=== PATIENT | female | born 1945 | race Caucasian/White ===

== ENCOUNTER → 2016-07-26 17:49 | Outpatient (CLI) | payer MEDICARE | END | disposition home or self-care (01) | LOC: D.LABREF 17:49 | DX: D64.9 Anemia, unspecified (principal) ==

== ENCOUNTER 2016-10-27 05:09 | Day surgery (SDC) | payer MEDICARE ==
[2016-10-26 10:54] LABS: HEMATOCRIT 34.8 % (36.0-48.0); HEMOGLOBIN 11.2 g/dL (12-16); MCH 30.6 pg (26.0-34.0); MCHC 32.2 g/dL (31.0-37.0); MCV 95.1 fL (80.0-100.0); MEAN PLATELET VOLUME 10.4 fL (7.4-10.4); RBC 3.66 10x6/uL (4.00-5.40); RDW 12.8 % (11.5-14.5); WBC 10.3 10x3/uL (4.8-10.8)
[2016-10-26 11:07] LABS: ANION GAP 12.7 mmol/L (8-16); CALCIUM 9.3 mg/dL (8.5-10.1); CARBON DIOXIDE 26.7 mmol/L (21.0-32.0); CREATININE - SERUM 0.9 mg/dL (0.6-1.3); POTASSIUM - SERUM 4.4 mmol/L (3.5-5.1)
[~2016-10-27] VITALS: Ht 157.5 cm; Wt 59.4 kg
--- NOTE | ~2016-10-27 | OP ---
PATIENT NAME: ЕЛЕНА MCNULTY MEDICAL RECORD: [id number] :49 LOCATION:D.OPS ADMISSION DATE: SURGEON: ROBE JAQUEZ DATE OF OPERATION: 10/27/2016 SURGEON: Robe Jaquez DPM PREOPERATIVE DIAGNOSES: 1. Tailor's bunion, right foot. 2. Hammertoe, second toe, right foot. 3. Hammertoe, third toe, right foot. 4. Hammertoe, fourth toe, right foot. 5. Hammertoe, fifth toe, right foot. POSTOPERATIVE DIAGNOSES: 1. Tailor's bunion, right foot. 2. Hammertoe, second toe, right foot. 3. Hammertoe, third toe, right foot. 4. Hammertoe, fourth toe, right foot. 5. Hammertoe, fifth toe, right foot. PROCEDURES: 1. Tailor's bunionectomy (silver type), right foot. 2. Arthrodesis, second toe, right foot. 3. Arthrodesis, third toe, right foot 4. Arthrodesis fourth toe, right foot. 5. Arthroplasty, fifth toe, right foot. ANESTHESIA: General. HEMOSTASIS: Pneumatic ankle tourniquet inflated to 250 mmHg. ESTIMATED BLOOD LOSS: Minimal. MATERIALS: A 3-0 Vicryl, 4-0 nylon, three 0.045 inch K-wires. INJECTABLES: A 20 cc of 0.25% Marcaine plain. INDICATIONS FOR PROCEDURE: The patient has longstanding history of the above-mentioned foot deformity. She has tried wider shoes to no avail. She is here today for surgical correction of the above deformities. We have discussed risks and benefits and complications were reviewed. Her questions were answered. She was appropriately consented for the above-mentioned procedures. The patient was brought in the operating room and placed in the operating table in supine position. A timeout was called with Dr. Jaquez, who identified the patient, the surgical site, and the surgeries to be performed. Once appropriate anesthesia was obtained, the foot was prepped and draped in the usual aseptic manner. The pneumatic ankle tourniquet was inflated to 250 mmHg on the well-padded right ankle. PROCEDURE NUMBER 1: Tailor's bunionectomy: Attention was directed to the dorsal lateral aspect of the fifth metatarsal head where a 4-cm linear incision OPERATIVE REPORT [id number] ЕЛЕНА MCNULTY was made. This incision was carried deep to soft tissue with care being taken to retract any vital neurovascular structures. All bleeders were cauterized along the way. The periosteum was then reflected from the head of the fifth metatarsal, thus exposing the hypertrophied lateral eminence. Utilizing a sagittal saw, all hypertrophied bone was resected. A bone rasp was then utilized to smooth any sharp bone edges. The surgical site was then irrigated with copious amounts of normal sterile saline via bulb syringe. The surgical site was then investigated for any remaining bony prominences and none were noted. The periosteum was then reapproximated and coapted utilizing 3-0 Vicryl. The subQ was then reapproximated and coapted utilizing 3-0 Vicryl and the skin was reapproximated and coapted using 4-0 nylon. PROCEDURE NUMBER 2: Arthrodesis second toe, right foot: Attention was directed to the dorsal aspect of the second toe of the right foot where a 3 cm linear incision was made. This incision was carried deep through soft tissue with care being taken to retract all vital neurovascular structures. All bleeders were cauterized along the way. The extensor tendon was then reflected at the level of the proximal interphalangeal joint. All soft tissue attachments were then freed from the head of the proximal phalanx, thus exposing the head of that bone. Utilizing a bone cutting forceps, the head of the proximal phalanx was resected. Utilizing a curette and rongeur, all cartilage was removed from the base of the middle phalanx. Dissection was then carried dorsally along the shaft of the proximal phalanx to the level of the metatarsophalangeal joint. Utilizing 15 blade, all tight contracted structures were released from the medial aspect of the joint. The surgical site was then irrigated with copious amounts of normal sterile saline via bulb syringe. Next, one 0.045 inch K-wire was driven through the middle phalanx distally exiting the toe. The K-wire was then retrograded into the proximal phalanx and into the head of the second metatarsal. The K-wire was then bent and clipped. The surgical site was then irrigated with copious amounts of normal sterile saline via bulb syringe. The extensor tendon was then reapproximated and coapted utilizing 3-0 Vicryl. The subQ was then reapproximated and coapted utilizing 3-0 Vicryl. The skin was then reapproximated and coapted using 4-0 nylon. PROCEDURE NUMBER 3: Arthrodesis, third toe, right foot. The exact same procedure that was performed in procedure number 2 was performed on toe number 3 without exception. PROCEDURE NUMBER 4: Arthrodesis fourth toe, right foot. The exact same procedure that was performed in procedures numbers 2 and 3 was performed on the fourth toe of the right foot without exception. PROCEDURE NUMBER 5: Arthroplasty, fifth toe, right foot: Attention was directed to the fifth toe of the right foot, where the incision utilized for procedure number 1 was extended on to the fifth toe of the right foot. This incision was carried deep to soft tissue with care being taken to retract all vital neurovascular structures. All bleeders were cauterized along the way. The extensor tendon was then reflected from the head of the proximal phalanx, thus exposing the hypertrophied eminence of this bone. Utilizing a bone cutting forceps, the head of the proximal phalanx was resected. Any sharp remaining bony edges were then smoothed with a rasp. The surgical site was then irrigated OPERATIVE REPORT [id number] ЕЛЕНА MCNULTY with copious amounts of normal sterile saline via bulb syringe. The extensor tendon was then reapproximated and coapted utilizing 3-0 Vicryl. The subQ was then reapproximated and coapted using 3-0 Vicryl. The skin was reapproximated and coapted using 4-0 nylon. A dressing consisting of Xeroform, 4 x 4's, Kerlix, and Johnnie bandage was applied to the right foot. The pneumatic ankle tourniquet was deflated and capillary refill time is noted to be immediate to all digits of the right foot. The patient tolerated the procedure and anesthesia well. She left the operating room with vital signs stable and capillary refill time intact. The patient was discharged home with instructions to ice and elevate the right foot. She was dispensed a boot to help offload the right foot. She has my cell phone number for any after hour difficulties. We will follow up with her next week. There were no complications with this procedure. TRANSINT:[id number] Voice Confirmation ID: [id number] DOCUMENT ID: [id number] ROBE JAQUEZ CC: [id number] DICTATION DATE: 10/27/16 1647 MARBLE MACHINE TENDER: 10/27/16[facility] 10/27/16 [facility] [address] [place] [address]
[~2016-10-27 05:09] MED LIST: LEVOTHYROXINE125 MCG PO; TENORMIN25 MG PO; ZESTORETIC 20-1 EACH PO
[2016-10-27 11:19] VITALS: BP 145/65; Ht 157.5 cm; Wt 59.4 kg
--- NOTE | 2016-10-27 14:30 | NUR ---
IV INFILTRATED AFTER GIVING IV DILAUDID FOR PAIN. PT REQUESTED IV NOT BE RESTARTED AND TO TAKE ORAL PAIN MEDICATION. REMOVED IV, PLACED WARM COMPRESS OVER AREA, AND TRANSFERRED TO OUTPATIENT ROOM.
--- NOTE | 2016-10-27 17:10 | NUR ---
1445- RECEIVED REPORT FROM Roosevelt CHRISTINE RN. TO SITTING WITH HOB ELEVATED. RIGHT FOOT ELEVATED WITH BOOT IN PLACE. IV INFILTRATED AND WAS REMOVED, WARM COMPRESS IN PLACE. 1515- FULL LIQUIDS TOLERATED, PAIN MED GIVEN FOR PAIN OF 6/10 TO RIGHT FOOT 1630- PT WAS UP OOB TO BR, VOIDED WITHOUT DIFFICULTY. REPORTS STILL FEELING DROWSY WILL CONTINUE TO MONITOR. 1700- DISCHARGE INSTRUCTIONS COMPLETED, PT VERBALIZED UNDERSTANDING. PAPERWORK SIGNED 1705- PT DISCHARGED VIA WHEELCHAIR WITH .
== END 2016-10-27 17:05 | disposition home or self-care (01) ==
LOC: D.OPS 05:09 → D.PAN 11:30 → D.OPS 11:30
PROVIDERS: Anesthesiology
DX: M21.621 Bunionette of right foot (principal); M20.41 Other hammer toe(s) (acquired), right foot

== ENCOUNTER → 2017-07-26 12:50 | Outpatient (CLI) | payer MEDICARE, OTHER ==
[2016-10-27 11:19] VITALS: BMI 24.0
--- NOTE | ~2017-07-26 | EC ---
PATIENT:ЕЛЕНА MCNULTY DATE OF SERVICE: 07/26/17 SEX: F MEDICAL RECORD: [id number] DATE OF : 49 LOCATION:D[facility] AGE OF PATIENT: 71 ADMISSION DATE: 07/26/17 REFERRING PHYSICIAN: INTERPRETING PHYSICIAN: ANNI ESTRADA MD ECHOCARDIOGRAM REPORT ECHO CHARGES 4 ECHO COMPLETE CLINICAL DIAGNOSIS: MURMUR ECHOCARDIOGRAPHIC MEASUREMENTS (adult normal given) AC root (d.<3.7cm) 3.0 cm LV Septum d (<1.2 cm> 1.5 cm Valve Excursion 1.5 cm LV Septum (systole) 2.1 cm Left Atria (s.<4.0cm> 4.1 cm LVPW d(<1.2cm) 1.5 cm RV (d.<2.3cm) 1.9 cm LVPW (sytole) 2.0 cm LV diastole(<5.6CM) 4.8 cm MV E-F(>70mm/sec) cm LV systole 2.7 cm LVOT Diameter 1.5 cm MV exc.(>10mm) cm Est.ejection fraction (50-75%) % Pericardial Effusion N DOPPLER: LVIT cm/sec A 66.0 cm/sec E 87.0 cm/sec LA cm/sec RVSP 35.2 mmHg LVOT 100 cm/sec AOP1/2T m/s Asc. Ao 231 cm/sec RVOT 69.0 cm/sec RA cm/sec PA 84.0 cm/sec AV Gradient Peak 21.3 mmHg AV Mean 9.8 mmHg AV Area 0.8 cm MV Gradient Peak 5.8 mmHg MV Mean 2.1 mmHg MV Area cm COMMENTS: Butt Welder: Zahida LINGOE Professor Of Voice: 1 Dr. Estrada TAPE# PACS DATE OF SERVICE: 07/26/2017 ECHOCARDIOGRAM DATE OF SERVICE: 07/26/2017 FINDINGS: 1. Left ventricle chamber size is within normal limits. Left ventricular systolic function is normal. Overall ejection fraction estimated at 60%. 2. The left atrium is mildly dilated at 4.1 cm. Right atrium and right ECHOCARDIOGRAM REPORT [id number] ЕЛЕНА MCNULTY ventricular chamber sizes are as well mildly dilated. 3. Valvular structures: Aortic valve demonstrates [id number] calcific aortic stenosis. There is a gradient of 21 mm across the valve. The valve area calculates to 0.8 cm-squared. The remaining valvular structures have normal structure and motion. 4. Doppler interrogation elsewise reveals [id number] mitral regurgitation, moderate tricuspid regurgitation, no other valvular insufficiency or stenosis. Pulmonary systolic pressure is estimated at 35 mmHg. 5. No evidence of pericardial effusion or left ventricular thrombus. TRANSINT:[id number] Voice Confirmation ID: [id number] DOCUMENT ID: [id number] ANNI ESTRADA MD at 1323 CC: [id number] DICTATION DATE: 07/27/17 0832 FIRE ADJUSTER: 07/27/17 1236 DEP CLI 07/26/17 [id number] [place] [address]
== END | disposition home or self-care (01) ==
LOC: D.ECHO 07-21 13:00
DX: R01.2 Other cardiac sounds (principal)

== ENCOUNTER 2017-08-21 14:03 | Emergency (ER) | payer MEDICARE, OTHER ==
[2016-10-27 11:19] VITALS: BMI 24.0
== END 2017-08-21 16:10 | disposition left against medical advice (07) ==
LOC: D.ER 14:03
DX: M25.551 Pain in right hip (principal)

== ENCOUNTER 2017-11-23 18:47 | Emergency (ER) | payer MEDICARE, OTHER ==
[2016-10-27 11:19] VITALS: BMI 24.0
== END 2017-11-23 20:52 | disposition home or self-care (01) ==
LOC: D.ER 18:47
DX: B02.9 Zoster without complications (principal); I10 Essential (primary) hypertension